=== PATIENT | female | born 1960 ===

== ENCOUNTER → 2016-04-30 | Day surgery (SDC) | payer OTHER ==
[~2016-04-30] VITALS: Ht 167.6 cm; Wt 55.8 kg
[~2016-04-30] MED LIST: AUGMENTIN 875-875 MG PO; METOPROLOL SUCC50 M1 PO; OMNICEF300 MG PO; PLAVIX75 M1 PO; TRAZODONE100 MG PO; TRAZODONE50 MG PO; TYLENOL WITH CO1 TA1 PO; XANAX0.25 MG PO
--- NOTE | ~2016-04-30 | O ---
[place], [place] OPERATIVE NOTE NAME: NA IRENECECE Zackery UNIT #: [id number] ROOM: DOCTOR: SHEYLA ESTRADA MD BIRTHDATE: [birth year] DOS: 04/30/2016 PREOPERATIVE DIAGNOSIS: Recurrent epistaxis. POSTOPERATIVE DIAGNOSIS: Recurrent epistaxis. PROCEDURE: Bilateral nasal endoscopy with left-sided epistaxis control with packing and cauterization. SURGEON: Dr. Estrada. ANESTHESIA: General endotracheal. ESTIMATED BLOOD LOSS: 10 mL. COMPLICATIONS: None. PACKING: Merocel packing placed in the left naris. INDICATIONS: The patient is a 56-year-old white female who presented to the ENT clinic on 04/29/2015 with a 5-day history of ongoing recurrent epistaxis. The patient was seen in [facility], had packing placed. The patient experienced recurrent bleeding following removal of the packing by her primary care physician. She is being taken to the operating room for control of epistaxis, mostly left-sided. OPERATIVE FINDINGS AND PROCEDURE: Following induction of general endotracheal anesthesia, the patient was positioned supine on the OR table. She was draped in a standard fashion for nasal surgery. Examination of the nasal cavities showed organized clot in both nasal cavities, which was suctioned and cleared. Left anterior septal region showed an area of hypervascularity, which was cauterized with electrical cautery. No lesions were identified in the nasal cavity. At the end of the cautery, there was no active bleeding. A Merocel pack was placed and secured in the left nasal cavity. The patient was awakened, extubated and transported to PACU in satisfactory condition. At the end of the case, all instruments, sponge counts were correct. The patient was obstructed to follow up with her primary care physician for packing removal in 3 days. [place], [place] OPERATIVE NOTE NAME: CECE IRENE UNIT #: [id number] ROOM: DOCTOR: SHEYLA ESTRADA MD BIRTHDATE: [birth year] SHEYLA ESTRADA MD CM:OPRECORD:OPERATIVE NOTE [id number] SHEYLA ESTRADA MD 05/01/16 1432 interface
[2016-04-30 10:48] LABS: BASO # 0.1 10*3/uL (0.0-0.1); BASO % 0.8 % (0.0-1.0); EOS # 0.3 10*3/uL (0.0-0.4); EOS % 2.8 % (1.0-4.0); HEMATOCRIT 29.6 % (37.0-47.0); HEMOGLOBIN 9.7 g/dl (12.0-16.0); LYMPH # 3.2 10*3/uL (1.3-4.4); LYMPH % 31.4 % (27.0-41.0); MEAN CELL VOLUME 89.2 fl (81.0-99.0); MEAN CORPUSCULAR HGB 29.2 pg (27.0-31.0); MEAN CORPUSCULAR HGB CONC 32.8 g/dl (33.0-37.0); MEAN PLATELET VOLUME 10.1 fl (9.6-12.3); MONO # 0.6 10*3/uL (0.1-1.0); NEUT # 5.9 10*3/uL (2.3-7.9); NEUT % 58.7 % (47.0-73.0); PLATELET COUNT AUTOMATED 366 10*3/uL (130-400); RED BLOOD COUNT 3.32 10*6/uL (4.10-5.10); RED CELL DISTRI WIDTH 12.5 % (0-14.5); WHITE BLOOD COUNT 10.1 10*3/uL (4.8-10.8)
[2016-04-30 10:56] LABS: INTERNATIONAL NORM RATIO 0.9 (2.0-3.5)
[2016-04-30 13:28] VITALS: BP 180/87
[2016-04-30 13:43] VITALS: BP 179/88
[2016-04-30 13:58] VITALS: BP 179/85
[2016-04-30 14:13] VITALS: BP 169/90
[2016-04-30 14:28] VITALS: BP 147/69
[2016-04-30 14:39] VITALS: BP 145/72
== END | disposition home or self-care (01) ==
LOC: SDC 02:53
PROVIDERS: Specialist
DX: R04.0 Epistaxis (principal); I10 Essential (primary) hypertension; Z86.73 Personal history of transient ischemic attack (TIA), and cerebral infarction without residual deficits; N28.9 Disorder of kidney and ureter, unspecified; Z96.0 Presence of urogenital implants

== ENCOUNTER 2016-06-27 23:00 | Emergency (ER) | payer OTHER ==
[~2016-06-27] VITALS: Ht 165.1 cm; Wt 47.6 kg
[2016-06-28 00:07] LABS: PROTHROMBIN TIME 10.8 SECONDS (9.0-12.4)
[2016-06-28 00:10] LABS: BUN 22 mg/dl (7-24); CARBON DIOXIDE 29 mmol/L (21-32); CHLORIDE 108 mmol/L (98-107); EST GLOM FILT AFRICAN AMERICAN > 60 ml/min; GLUCOSE 130 mg/dL (65-99); SODIUM 143 mmol/L (136-145)
[2016-06-28 00:13] LABS: BASO % 0.3 % (0.0-1.0); EOS # 0.3 10*3/uL (0.0-0.4); EOS % 2.3 % (1.0-4.0); HEMATOCRIT 24.3 % (37.0-47.0); HEMOGLOBIN 8.1 g/dl (12.0-16.0); LYMPH # 2.3 10*3/uL (1.3-4.4); LYMPH % 19.8 % (27.0-41.0); MEAN CELL VOLUME 89.7 fl (81.0-99.0); MEAN CORPUSCULAR HGB 29.9 pg (27.0-31.0); MEAN CORPUSCULAR HGB CONC 33.3 g/dl (33.0-37.0); MEAN PLATELET VOLUME 10.3 fl (9.6-12.3); MONO # 0.8 10*3/uL (0.1-1.0); MONO % 7.1 % (3.0-9.0); NEUT # 8.1 10*3/uL (2.3-7.9); NEUT % 70.2 % (47.0-73.0); PLATELET COUNT AUTOMATED 241 10*3/uL (130-400); RED BLOOD COUNT 2.71 10*6/uL (4.10-5.10); RED CELL DISTRI WIDTH 12.4 % (0-14.5); WHITE BLOOD COUNT 11.6 10*3/uL (4.8-10.8)
== END 2016-06-28 00:51 | disposition short-term general hospital (02) ==
LOC: ED 23:00
PROVIDERS: Emergency Medicine
DX: R04.0 Epistaxis (principal); Z79.899 Other long term (current) drug therapy